=== PATIENT | female | born 1945 | race Caucasian/White ===

== ENCOUNTER → 2021-07-09 06:51 | Outpatient (CLI) | payer MEDICARE, SELFPAY ==
[2021-07-09 08:54] LABS: Add Manual Diff / Slide Review NO; Basophils Absolute Auto 100 /uL (0-100); Basophils Percent Auto 0.9 % (0-2); Eosinophils Absolute Auto 200 /uL (0-450); Eosinophils Percent Auto 3.3 % (2-4); Hematocrit 38.5 % (36-46); Hemoglobin 12.8 g/dL (12.0-16.0); Lymphocytes Absolute Auto 2200 /uL (1100-4500); Lymphocytes Percent Auto 34.6 % (25-40); Mean Corpuscular HGB Conc 33.2 % (30-36); Mean Corpuscular Hemoglobin 30.5 PG (26-34); Mean Corpuscular Volume 92.1 fL (80-100); Monocytes Absolute Auto 700 /uL (0-900); Monocytes Percent Auto 11.2 % (3-14); Neutrophils Absolute Auto 3200 /uL (1500-7000); Platelet Count 175 X10^3/uL (150-400); Red Blood Cell Count 4.18 X10^6/uL (4.0-5.2); Red Cell Distribution Width 12.7 % (11.6-14.8); White Blood Cell Count 6.3 X10^3/uL (4.5-11.0)
[2021-07-09 09:00] LABS: Alanine Aminotransferase 17 IU/L (<35); Albumin 4.2 g/dL (3.5-5.0); Albumin Globulin Ratio 1.8 (1.0-2.8); Alkaline Phosphatase 53 U/L (38-126); Aspartate Aminotransferase 27 IU/L (14-36); BUN Creatinine Ratio 38.2 (6-22); Bilirubin Total 0.4 mg/dL (0.2-1.3); Blood Urea Nitrogen 26 mg/dL (7-17); Carbon Dioxide 34 mmol/L (22-32); Chloride 103 mmol/L (98-107); Cholesterol 192 mg/dL (140-199); Estimated Glomerular Filt Rate > 60 mL/min (>60); Globulin 2.3 g/dL (1.7-4.1); Glucose 91 mg/dL (80-110); HDL Cholesterol 100 mg/dL (40-60); HEMOLYSIS < 15 (0-50); LDL Cholesterol Calculated 78 mg/dL (<100); Potassium 4.8 mmol/L (3.4-5.1); Sodium 139 mmol/L (137-145); Total Protein 6.5 g/dL (6.3-8.2); Triglycerides 68 mg/dL (35-150)
[2021-07-09 09:14] LABS: Vitamin D 25 Hydroxy (D3) 56.7 ng/mL (30.0-100.0)
[2021-07-09 09:20] LABS: Free T4, Direct Thyroxine 1.34 ng/dL (0.78-2.19)
[2021-07-09 09:34] LABS: Thyroid Stimulating Hormone 0.954 uIU/mL (0.47-4.68)
[2021-07-09 09:47] LABS: Vitamin B12 347 pg/mL (239-931)
== END ==
PROVIDERS: PCP Family Medicine; Referring Provider Specialist; Visit Provider Specialist
DX: I10 Essential (primary) hypertension (principal); E89.0 Postprocedural hypothyroidism; M85.80 Other specified disorders of bone density and structure, unspecified site; E55.9 Vitamin D deficiency, unspecified
CPT/HCPCS: 36415; 80053; 80061; 82306; 82607; 84439; 84443; 85025

== ENCOUNTER → 2021-11-15 08:05 | Outpatient (CLI) | payer MEDICARE, SELFPAY ==
--- NOTE | 2021-11-15 | DI.MG.S_ITS ---
BILATERAL DIGITAL SCREENING MAMMOGRAM 3D/2D WITH CAD WITH AUGMENTATION: 11/15/2021 CLINICAL: Routine screening. Comparison is made to exams dated: 07/19/2020 mammogram, 06/30/2018 mammogram, and 06/27/2017 mammogram - out side. Both breasts are heterogeneously dense, which may obscure small masses (category c / 51-75% glandular tissue). Current study was also evaluated with a Computer Aided Detection (CAD) system. Bilateral breast implants are present. No significant masses, calcifications, or other findings are seen in either breast. There has been no significant interval change. IMPRESSION: NEGATIVE There is no mammographic evidence of malignancy. A 1 year screening mammogram is recommended. Based on the Tyrer Cuzick model (a risk assessment model) the patient's lifetime risk is 6.0% and her 10 year risk is 0.0%. According to the ACR, ACS, and NCCN guidelines, an annual breast MRI exam along with mammogram is recommended if the patient's lifetime risk is 20% or greater. This exam was interpreted at Station ID: [id number]. NOTE: For mammograms, a report in lay terms will be sent to the patient. Approximately 15% of breast malignancies will not be visualized mammographically. In the management of a palpable breast mass, a negative mammogram must not discourage biopsy of a clinically suspicious lesion. Electronically Signed By: Soren rizo/danny:11/15/2021 16:40:16 letter sent: Normal Exam ACR BI-RADS Category 1: Negative [id number]
== END ==
PROVIDERS: PCP Family Medicine; Referring Provider Family Medicine; Visit Provider Family Medicine
DX: Z12.31 Encounter for screening mammogram for malignant neoplasm of breast (principal)
CPT/HCPCS: 77063; 77067

== ENCOUNTER → 2021-12-25 06:51 | Outpatient (CLI) | payer MEDICARE, SELFPAY ==
[2021-12-25 07:32] LABS: Appearance Urine UA CLEAR; Bilirubin Urine UA NEGATIVE (NEGATIVE); Color Urine UA YELLOW; Glucose Urine UA NEGATIVE (Negative); Ketones Urine UA NEGATIVE (NEGATIVE); Leukocyte Esterase Urine UA TRACE (NEGATIVE); Nitrite Urine UA NEGATIVE (Negative); Occult Blood Urine UA TRACE-INTACT (Negative); Protein Urine UA NEGATIVE (Negative); Specific Gravity Urine UA 1.015 (1.000-1.035); Urobilinogen Urine UA 0.2 E.U./dL (0.2)
[2021-12-25 07:37] LABS: Add Manual Diff / Slide Review NO; Bacteria Urine None Seen; Basophils Absolute Auto 100 /uL (0-100); Culture Indicated Urine Specimen Cultured; Eosinophils Absolute Auto 200 /uL (0-450); Eosinophils Percent Auto 2.9 % (2-4); Hematocrit 38.6 % (36-46); Lymphocytes Absolute Auto 2500 /uL (1100-4500); Lymphocytes Percent Auto 32.6 % (25-40); Mean Corpuscular HGB Conc 33.8 % (30-36); Mean Corpuscular Hemoglobin 31.5 PG (26-34); Mean Corpuscular Volume 93.4 fL (80-100); Monocytes Absolute Auto 800 /uL (0-900); Neutrophils Absolute Auto 3900 /uL (1500-7000); Neutrophils Percent Auto 52.5 % (50-75); Platelet Count 229 X10^3/uL (150-400); RBC Urine None Seen (0-5/HPF); Red Blood Cell Count 4.13 X10^6/uL (4.0-5.2); Red Cell Distribution Width 12.7 % (11.6-14.8); Squamous Epithelial Cell Urine 0-1 /HPF (0-5/HPF); WBC Urine 0-1/HPF (0-5/HPF); White Blood Cell Count 7.5 X10^3/uL (4.5-11.0)
[2021-12-25 07:52] LABS: Erythrocyte Sedimentation Rate 6 MM/HR (0-20)
[2021-12-25 07:53] LABS: Alanine Aminotransferase 22 IU/L (<35); Albumin 4.2 g/dL (3.5-5.0); Albumin Globulin Ratio 1.5 (1.0-2.8); Alkaline Phosphatase 60 U/L (38-126); Aspartate Aminotransferase 30 IU/L (14-36); BUN Creatinine Ratio 30.6 (6-22); Bilirubin Total 0.5 mg/dL (0.2-1.3); Blood Urea Nitrogen 19 mg/dL (7-17); C-Reactive Protein Quant < 0.5 mg/dL (<1.0); Calcium 8.6 mg/dL (8.4-10.2); Carbon Dioxide 32 mmol/L (22-32); Chloride 102 mmol/L (98-107); Cholesterol 208 mg/dL (140-199); Estimated Glomerular Filt Rate > 60 mL/min (>60); Globulin 2.8 g/dL (1.7-4.1); Glucose 93 mg/dL (80-110); HDL Cholesterol 94 mg/dL (40-60); HEMOLYSIS < 15 (0-50); LDL Cholesterol Calculated 100 mg/dL (<100); Potassium 4.4 mmol/L (3.4-5.1); Sodium 141 mmol/L (137-145); Triglycerides 69 mg/dL (35-150); Uric Acid 4.5 mg/dL (2.5-6.2)
[2021-12-25 08:27] LABS: Free T3, Triiodothyronine Free 3.55 pg/mL (2.77-5.27); Free T4, Direct Thyroxine 1.29 ng/dL (0.78-2.19)
[2021-12-25 08:38] LABS: Vitamin B12 359 pg/mL (239-931)
[2021-12-25 08:41] LABS: TSH w/ Reflex to FT4 2.75 uIU/mL (0.47-4.68)
== END ==
PROVIDERS: PCP Family Medicine; Referring Provider Family Medicine; Visit Provider Family Medicine
DX: E03.9 Hypothyroidism, unspecified (principal); I10 Essential (primary) hypertension; M32.9 Systemic lupus erythematosus, unspecified
CPT/HCPCS: 36415; 80053; 80061; 81001; 82607; 84439; 84443; 84481; 84550; 85025; 85651; 86140; 87086

== ENCOUNTER 2022-01-27 11:43 | Emergency (ER) | payer MEDICARE, SELFPAY ==
[2022-01-27 11:48] VITALS: BP 139/77; PULSE 86; RESP 16; TEMP 37.1; O2SAT 98; BMI 23.6
--- NOTE | 2022-01-27 12:00 | DI.RAD.S_ITS ---
PROCEDURE: XR HIP W PEL IF DONE RT 2V INDICATIONS: fall, pain TECHNIQUE: AP pelvis with lateral view(s) of the right hip(s). COMPARISON: None. FINDINGS: Bones: No acute appearing fractures or dislocations. Pelvic ring appears intact. No suspicious bony lesions. Postoperative change of the left femoral neck is seen, which appears intact. There is a remote left femoral neck fracture. Soft tissues: The visualized bowel gas pattern is normal. No suspicious soft tissue calcifications. IMPRESSION: No acute appearing fracture can be seen. There is a remote left femoral neck fracture, with pinning. If there is point tenderness (or other clinical suspicion for a fracture not seen on these images) then a dedicated CT could be considered for further evaluation, if clinically appropriate. Dictated by: Bernard Ayers M.D. on 01/27/2022 at 11:38 Approved by: Bernard Ayers M.D. on 01/27/2022 at 11:39
[2022-01-27 14:00] VITALS: BP 138/75; PULSE 84; RESP 16; O2SAT 97
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
[2022-01-27] MEDS: KETOROLAC 30 MG/ML VIAL IM (14:39)
[2022-01-27] MEDS: predniSONE 20 MG TABLET PO (14:39)
[2022-01-27] MEDS: HYDROCODONE/ACET 5/325 TABLET 1 TAB PO (14:39)
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
[2022-01-27 15:53] VITALS: BP 142/72; PULSE 86; RESP 16; O2SAT 98
== END 2022-01-27 15:54 | disposition home or self-care (01) ==
PROVIDERS: Emergency Provider Nurse Practitioner Critical Care Medicine; PCP Family Medicine
DX: M25.551 Pain in right hip (principal); M54.16 Radiculopathy, lumbar region; Y04.2XXA Assault by strike against or bumped into by another person, initial encounter
CPT/HCPCS: 72100; 73502; 96372; 99283; 99284; J1885

== ENCOUNTER → 2022-02-02 13:55 | Outpatient (CLI) | payer MEDICARE, SELFPAY ==
--- NOTE | 2022-02-02 13:58 | DI.MRI.S_ITS ---
PROCEDURE: MR LUMBAR SPINE WO CON INDICATIONS: acute on chronic radicular back pain TECHNIQUE: Noncontrast sagittal T1 spin echo and T2 fast echo, sagittal STIR, and T2 fast spin echo through the lumbar spine. In cases with scoliosis, additional coronal T2 fast spin echo may be performed. COMPARISON: [facility], CR, XR LUMBAR SPINE 2-3V, 01/27/2022, 14:33. FINDINGS: Image quality: Excellent. Alignment and Curvature: Mild dextro curvature is centered L2. 5 mm degenerative retrolisthesis of L2 on L3. Bone Marrow: Marrow is of normal overall signal. No acute vertebral body compression fractures. Spinal Cord: Conus medullaris terminates at the T12-L1 level. Visualized cord demonstrates normal signal and size. Paraspinous Soft Tissues: No paravertebral masses. T12-L1: No canal stenosis or foraminal stenosis. L1-L2: Moderate diffuse disc bulge. Mild facet hypertrophy. Vcic-pz-gdzvptqs left foraminal stenosis. L2-L3: Retrolisthesis of L2 on L3. Disc bulge. Facet hypertrophy. No significant canal stenosis. Whnx-ga-zjmztflt right foraminal narrowing. Moderate left foraminal narrowing with flattening deformity on the exiting left L2 nerve root. L3-L4: Disc bulge. Facet hypertrophy. No significant canal stenosis. Hhbe-am-mqwtzhtk bilateral foraminal stenosis. L4-L5: Disc bulge. Facet hypertrophy. No significant canal stenosis. Mild bilateral foraminal stenosis. L5-S1: Disc bulge. Facet hypertrophy. No canal stenosis or significant foraminal stenosis. IMPRESSION: 1. Mild dextrocurvature. 2. Multilevel facet arthropathy. 3. No significant canal stenosis. 4. Multilevel foraminal stenosis as described above. Dictated by: Lei Rosa M.D. on 02/04/2022 at 9:41 Approved by: Lei Rosa M.D. on 02/04/2022 at 9:49
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
== END ==
PROVIDERS: PCP Family Medicine; Referring Provider Family Medicine; Visit Provider Family Medicine
DX: S32.511A Fracture of superior rim of right pubis, initial encounter for closed fracture (principal); S32.10XA Unspecified fracture of sacrum, initial encounter for closed fracture; S76.011A Strain of muscle, fascia and tendon of right hip, initial encounter; S73.101A Unspecified sprain of right hip, initial encounter; S30.1XXA Contusion of abdominal wall, initial encounter; M76.01 Gluteal tendinitis, right hip; M16.11 Unilateral primary osteoarthritis, right hip; Y09 Assault by unspecified means; M54.16 Radiculopathy, lumbar region; M25.551 Pain in right hip
CPT/HCPCS: 72148; 73721

== ENCOUNTER → 2022-02-20 10:27 | Outpatient (CLI) | payer MEDICARE, SELFPAY ==
[2022-02-20 11:42] LABS: COVID19 -Nasal RAPID Negative (Negative)
== END ==
PROVIDERS: PCP Family Medicine; Referring Provider Orthopaedic Surgery; Visit Provider Orthopaedic Surgery
DX: Z20.822 Contact with and (suspected) exposure to COVID-19 (principal)
CPT/HCPCS: 87635; C9803

== ENCOUNTER 2022-02-22 06:30 | Day surgery (SDC) | payer MEDICARE, SELFPAY ==
[2022-02-21 07:36] VITALS: BMI 22.8
[2022-02-22] VITALS (18 sets, daily range): BP systolic 102–166; BP diastolic 54–85; PULSE 82–102; RESP 9–20; TEMP 36.2–36.8; O2SAT 90–100; BMI 22.8
--- NOTE | 2022-02-22 | DI.RAD.S_ITS ---
PROCEDURE: XR SHOULDER RT MIN 2V INDICATIONS: ORIF TECHNIQUE: 3 views of the shoulder were acquired. [facility] 2+ VIEWS RIGHT, 02/05/2022, 14:09. FINDINGS: Intraoperative images were obtained for right proximal humerus fixation hardware placement. IMPRESSION: 3 intraoperative images were obtained for right proximal humerus fixation hardware placement. Please see operative note for full details. Dictated by: Bal Whitney M.D. on 02/22/2022 at 9:25 Approved by: Bal Whitney M.D. on 02/22/2022 at 9:25
[2022-02-22] MEDS: LACTATED RINGERS 1,000 ML 42 ML IV ×2 (07:29→09:03)
--- NOTE | 2022-02-22 07:40 | PM.PREOP ---
Pre-operative Note Interval Note History & Physical reviewed/Exam performed by Physician: Yes Changes to H&P: No
[2022-02-22] MEDS: CEFAZOLIN 2 GM/100 ML PREMIX 100 ML IV (08:15)
[2022-02-22] MEDS: TRANEXAMIC ACID 1,000 MG VIAL 1000 MG INJ (08:20)
--- NOTE | 2022-02-22 08:52 | SUR.OPER ---
Beach chair with Skytron bed shoulder positioner. Lower body on padded OR bed. Head in foam padded head cradle, secured with straps. Non-operative arm secured <90 degrees abduction, padded with gel pad and tucked at side. 2 Pillows under knees. Gel pad under bilateral heels and heels floating. Safety belt at thigh. Cloth tape over blanket over lower legs.
--- NOTE | 2022-02-22 08:53 | SUR.OPER ---
Patients glasses placed in black glass case with patient label and placed into belongings bag in pre-op area.
--- NOTE | 2022-02-22 10:18 | P.OP_ITS ---
Operative Date/Time/Diagnoses Date of procedure: 02/22/22 Time of procedure: 10:18 Pre-op diagnosis: Right proximal humerus greater tuberosity fracture Post-op diagnosis: same Procedure & Clinicians Procedure: ORIF right shoulder greater tuberosity fracture Same procedure as scheduled: Yes Indications: This is a pleasant 77-year-old female who presents today with right proximal humerus greater tuberosity fracture. Preoperatively we discussed that if not treated, the displacement of her greater tuberosity fracture could lead to limitations in abduction and external rotation. In order to reduce the fracture, allow early range of motion and full range of motion we discussed going forward with surgery. Risks were discussed with her including risks of infection, damage to internal structures, bleeding, hardware failure, need for future surgery and anesthesia. No guarantees were made regarding outcomes. She expressed understanding and wished to go forward with surgery. Surgeon: Telly Mirza Web Master: Elise Paige Anesthesia Type: General Operative Notes Findings: Right shoulder greater tuberosity fracture as seen on fluoroscopy and under direct visualization Closure Type: primary Prosthetic devices, grafts, tissues, transplants, or devices: Piña and Nephew greater tuberosity locking plate Estimated Blood Loss (mL): 50 Blood products transfused: none Procedure in detail: Patient was seen in the preoperative holding area. The right upper extremity was examined and marked with my initials. We again went over the risks and benefits of surgery and consent was signed. The patient was brought back to the operating room and placed in a beach chair position. All bony prominences were padded. 2 g of Ancef and 1g of TXA were given. The left upper extremity was prepped and draped in the standard sterile fashion. A time-out was then performed in my initials were again confirmed on the right upper extremity. A standard deltopectoral approach was performed. The cephalic vein was encountered and moved lateral and protected throughout the remainder of the case. The clavipectoral fascia was incised and the conjoined tendon was retracted medially. The biceps tendon was [intact and within the bicipital groove] was preserved through the remainder of the case. The subacromial space and deltoid were freed of all adhesions. The axillary nerve was identified and protected through the entirety of the procedure. The fracture site was debrided. Two separate 2. Ethibond sutures were placed through the supraspinatus and infraspinatus and used to pull the greater tuberosity distal. This allowed the plate to be fashioned and placed. A bicortical nonlocking screw was placed in the oblong hole followed by a cancellous nonlocking screw placed in the most proximal hole. This sucked the p late down and the remainder of the holes were filled. The rotator cuff was then tied into the plate using the Ethibond sutures. Shoulder was then taken through range of motion under multiple fluoroscopic views to confirm adequate hardware placement and fracture reduction. Wounds were thoroughly irrigated. They were then closed with 2-0 PDS and wanda. Sterile dressings were placed the patient was then brought to the postanesthesia care unit. Assisting participation: This operation could not have been safely performed (without compromising the technical results or length of the procedure) without the assistance of a skilled surgical instrument repair specialist. The surgical instrument repair specialist was medically necessary for proper positioning, retraction and manipulation of instruments, proper exposure, graft prep, and manipulation of tissue. Complications: none Post-operative Condition: stable Disposition: PACU Plan for aftercare: Sling for 2 weeks for comfort, she may come out of the sling for range of motion, gentle with passive. We will start physical therapy within the next 2 weeks. Okay to discontinue the sling after 2-4 weeks if comfortable. Aquacel dressing in place, remove in clinic. Okay to shower over the dressing. Please note take the dressing off if water gets underneath the dressing.
--- NOTE | 2022-02-22 13:33 | SUR.PHASEII ---
Patient able to maintain oxygen saturation 93 to 94% after using Incentive spirometer and practicing deep breathing. Patient denies any SOB; strong cough noted. Instructed patient to use her Incentive spirometer every hour while awake. Advised patient and family that precriptions were at [facility]. Instructed to call Dr Mirza's office for follow-up appointment. V/U. Home in stable condition with family.
== END 2022-02-22 13:38 | disposition home or self-care (01) ==
PROVIDERS: PCP Family Medicine; Referring Provider Orthopaedic Surgery; Visit Provider Orthopaedic Surgery
PROC: (CPT 23615; principal; 2022-02-22 07:45)
DX: S42.251A Displaced fracture of greater tuberosity of right humerus, initial encounter for closed fracture (principal); G89.18 Other acute postprocedural pain; Y04.0XXA Assault by unarmed brawl or fight, initial encounter; Y92.481 Parking lot as the place of occurrence of the external cause
CPT/HCPCS: 23615; 64415; 73030; 76000; J0690; J1100; J1170; J2405; J2704; J3010

== ENCOUNTER → 2022-11-20 08:08 | Outpatient (CLI) | payer MEDICARE, SELFPAY ==
--- NOTE | 2022-11-20 | DI.MG.S_ITS ---
BILATERAL DIGITAL SCREENING MAMMOGRAM 3D/2D WITH CAD WITH AUGMENTATION: 11/20/2022 CLINICAL: Routine screening. Family history of breast cancer. Comparison is made to exams dated: 11/15/2021 mammogram - [facility], 07/19/2020 mammogram, 07/19/2020 mammogram, 06/30/2018 mammogram, and 06/27/2017 mammogram - out side. Both breasts are heterogeneously dense, which may obscure small masses (category c / 51-75% glandular tissue). Current study was also evaluated with a Computer Aided Detection (CAD) system. Bilateral breast implants are present. No significant masses, calcifications, or other findings are seen in either breast. There has been no significant interval change. IMPRESSION: BENIGN There is no mammographic evidence of malignancy. A 1 year screening mammogram is recommended. Based on the Tyrer Cuzick model (a risk assessment model) the patient's lifetime risk is 5.4% and her 10 year risk is 0.0%. According to the ACR, ACS, and NCCN guidelines, an annual breast MRI exam along with mammogram is recommended if the patient's lifetime risk is 20% or greater. This exam was interpreted at Station ID: [id number]. NOTE: For mammograms, a report in lay terms will be sent to the patient. Approximately 15% of breast malignancies will not be visualized mammographically. In the management of a palpable breast mass, a negative mammogram must not discourage biopsy of a clinically suspicious lesion. Electronically Signed By: Bal gonsalves/danny:11/20/2022 09:34:36 letter sent: Normal Exam ACR BI-RADS Category 2: Benign Finding(s) 3342F
== END ==
PROVIDERS: PCP Family Medicine; Referring Provider Family Medicine; Visit Provider Family Medicine
DX: Z12.31 Encounter for screening mammogram for malignant neoplasm of breast (principal); Z80.3 Family history of malignant neoplasm of breast
CPT/HCPCS: 77063; 77067

== ENCOUNTER → 2022-12-12 07:07 | Outpatient (CLI) | payer MEDICARE, SELFPAY ==
[2022-12-12 08:41] LABS: Appearance Urine UA CLEAR; Bilirubin Urine UA NEGATIVE (NEGATIVE); Color Urine UA YELLOW; Glucose Urine UA NEGATIVE (Negative); Ketones Urine UA NEGATIVE (NEGATIVE); Leukocyte Esterase Urine UA TRACE (NEGATIVE); Nitrite Urine UA POSITIVE (Negative); Occult Blood Urine UA NEGATIVE (Negative); Protein Urine UA TRACE (Negative); Specific Gravity Urine UA >=1.030 (1.000-1.035); Urobilinogen Urine UA 0.2 E.U./dL (0.2)
[2022-12-12 08:43] LABS: Amorphous Sediment Urine 1+; Bacteria Urine Moderate (10-30); RBC Urine None Seen (0-5/HPF); Renal Epithelial Cells Urine 1-5/HPF (0-1/HPF); Squamous Epithelial Cell Urine 5-10 /HPF (0-5/HPF); WBC Urine 5-10/HPF (0-5/HPF); pH Urine UA 5.5 (4.5-8.0)
[2022-12-12 08:44] LABS: Culture Indicated Urine Specimen Cultured
[2022-12-12 08:57] LABS: Add Manual Diff / Slide Review NO; Basophils Absolute Auto 100 /uL (0-100); Basophils Percent Auto 0.9 % (0-2); Eosinophils Absolute Auto 200 /uL (0-450); Eosinophils Percent Auto 2.3 % (2-4); Hematocrit 40.1 % (36-46); Hemoglobin 13.7 g/dL (12.0-16.0); Lymphocytes Absolute Auto 2600 /uL (1100-4500); Lymphocytes Percent Auto 33.8 % (25-40); Mean Corpuscular HGB Conc 34.2 % (30-36); Mean Corpuscular Hemoglobin 31.7 PG (26-34); Mean Corpuscular Volume 92.7 fL (80-100); Monocytes Absolute Auto 800 /uL (0-900); Monocytes Percent Auto 10.1 % (3-14); Neutrophils Absolute Auto 4000 /uL (1500-7000); Neutrophils Percent Auto 52.9 % (50-75); Platelet Count 220 X10^3/uL (150-400); Red Blood Cell Count 4.33 X10^6/uL (4.0-5.2); Red Cell Distribution Width 13.1 % (11.6-14.8); White Blood Cell Count 7.6 X10^3/uL (4.5-11.0)
[2022-12-12 09:12] LABS: BUN Creatinine Ratio 35.8 (6-22); Blood Urea Nitrogen 24 mg/dL (7-17); Calcium 9.5 mg/dL (8.4-10.2); Carbon Dioxide 29 mmol/L (22-32); Chloride 101 mmol/L (98-107); Estimated Glomerular Filt Rate > 60 mL/min (>60); Glucose 91 mg/dL (80-110); HEMOLYSIS < 15 (0-50); Potassium 3.8 mmol/L (3.4-5.1); Sodium 139 mmol/L (137-145)
== END ==
PROVIDERS: PCP Family Medicine; Referring Provider Orthopaedic Surgery; Visit Provider Orthopaedic Surgery
DX: Z01.818 Encounter for other preprocedural examination (principal); Z01.812 Encounter for preprocedural laboratory examination; N39.0 Urinary tract infection, site not specified
CPT/HCPCS: 36415; 80048; 81001; 85025; 87086; 93005

== ENCOUNTER → 2022-12-13 06:54 | Outpatient (CLI) | payer MEDICARE, SELFPAY ==
--- NOTE | 2022-12-13 | DI.CT.S_ITS ---
PROCEDURE: CT SHOULDER RIGHT WITHOUT CON INDICATIONS: ROTATOR CUFF ARTHROPATHY OF RIGHT SHOULDER TECHNIQUE: Noncontrast 1-1.5 mm thick sections acquired from the acromioclavicular joint to the inferior scapula, with coronal and sagittal reformatting. COMPARISON: [facility], CR, XR SHOULDER 2+ VIEWS RIGHT, 12/05/2022, 9:34. FINDINGS: Image quality: Excellent. Bones: Postsurgical changes are seen from proximal humeral fracture fixation with a lateral plate and screw construct. The metal hardware appears to be intact. No acute osseous fracture is seen. There is residual osseous deformity at the posterior greater tuberosity. A displaced ossification is seen posterior to the glenohumeral joint measuring 2.0 x 2.2 x 0.4 cm. The [id number] degenerative changes are seen at the acromioclavicular joint. There is mild degenerative spurring in the glenoid rim. The humeral head is mildly high riding with narrowing of the acromiohumeral interval to 0.5 cm. Old healed right-sided rib fractures are seen without a definite acute displaced rib fracture identified. Soft tissues: Small glenohumeral effusion. There is mild atrophy and fatty infiltration of the supraspinatus muscle that is suspicious for chronic tendon tearing. There is also fatty infiltration of the supraspinatus muscle. The ossification posterior to the humeral head appears to be located along the course of the infraspinatus tendon may represent a displaced avulsion fragment. The teres minor and subscapularis muscles are normal in bulk. However, the tendons, ligaments, articular cartilages, and labrum are not well evaluated with standard CT. There is mild scarring or atelectasis in the medial right middle lobe. Pleural-parenchymal scarring is seen at the right lung apex. A right breast implant is partially imaged. IMPRESSION: 1. Postsurgical changes from right proximal humeral fixation with intact hardware. Fracture appears healed. No acute osseous abnormality. 2. Findings suspicious for chronic rotator cuff tendon tearing are seen including atrophy and fatty infiltration of the supraspinatus and infraspinatus muscles and a high-riding humeral head. Displaced ossification posterior to the glenohumeral joint is located along the course of the infraspinatus tendon and is suspicious for a chronic displaced greater tuberosity avulsion fragment. 3. 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 4. Small glenohumeral effusion. Approved by: Medardo Dixon M.D. on 12/13/2022 at 15:59
== END ==
PROVIDERS: PCP Family Medicine; Referring Provider Orthopaedic Surgery; Visit Provider Orthopaedic Surgery
DX: Z98.890 Other specified postprocedural states (principal); M62.511 Muscle wasting and atrophy, not elsewhere classified, right shoulder; M19.011 Primary osteoarthritis, right shoulder; M25.411 Effusion, right shoulder
CPT/HCPCS: 73200

== ENCOUNTER 2022-12-25 06:30 | Inpatient (IN) | payer MEDICARE, SELFPAY ==
[2022-12-20 10:44] VITALS: BMI 22.7
[2022-12-25] VITALS (9 sets, daily range): BP systolic 121–171; BP diastolic 67–96; PULSE 81–90; RESP 13–23; TEMP 36–36.6; O2SAT 94–98; BMI 22.8
--- NOTE | 2022-12-25 06:00 | DI.RAD.S_ITS ---
PROCEDURE: XR SHOULDER RT MIN 2V INDICATIONS: RTSA TECHNIQUE: 2 views of the shoulder were acquired. COMPARISON: [facility], , XR SHOULDER RT MIN 2V, 02/22/2022, 10:37. FINDINGS: Right shoulder arthroplasty changes. Soft tissue post surgical change is present. IMPRESSION: Post operative changes as above. Dictated by: Samantha Mccullough M.D. on 12/25/2022 at 11:11 Approved by: Samantha Mccullough M.D. on 12/25/2022 at 11:11
[2022-12-25] MEDS: LACTATED RINGERS 1,000 ML 42 ML IV ×2 (07:00→10:05)
--- NOTE | 2022-12-25 07:35 | SUR.PREOP ---
Block start time [0740] Time out at 0735. Monitoring initiated and maintained throughout procedure. Oxygen and medications given per anesthesiologist instructions. Patient remained stable throughout procedure, no adverse reactions noted, VSS stable post and patient tolerated procedure. Block end time [0746].
--- NOTE | 2022-12-25 07:37 | PM.PREOP ---
Pre-operative Note Interval Note History & Physical reviewed/Exam performed by Physician: Yes Changes to H&P: No
[2022-12-25] MEDS: CEFAZOLIN 2 GM/100 ML PREMIX 100 ML IV (07:55)
[2022-12-25] MEDS: TRANEXAMIC ACID 1,000 MG VIAL 1000 MG INJ (08:18)
--- NOTE | 2022-12-25 08:33 | SUR.OPER ---
Beach chair with Skytron shoulder positioner. Lower body on padded OR bed. Head in foam padded head cradle, secured with straps. Non-operative arm secured <90 degrees abduction. Pillow under knees. Safety belt at thigh. Cloth tape over blanket over lower legs.
[2022-12-25] MEDS: BUPIVACAINE 0.25% (PF) 30 ML, EPINEPHrine 0.15 MG INJ (08:57)
--- NOTE | 2022-12-25 10:17 | P.OP_ITS ---
Operative Date/Time/Diagnoses Date of procedure: 12/25/22 Time of procedure: 10:17 Pre-op diagnosis: Right shoulder rotator cuff insufficiency Post-op diagnosis: same Procedure & Clinicians Procedure: Right shoulder removal of hardware Right shoulder reverse total shoulder arthroplasty Same procedure as scheduled: Yes Indications: Indications: This is a 77-year-old female status post greater tuberosity fracture and ORIF who never really regained function past 90? forward elevation. She also has pain. We discussed that for pain control reverse total shoulder arthroplasty he is a good option and due to her rotator cuff insufficiency. We would also perform a removal of hardware. Risks and benefits were described including the risk of infection, bleeding, damage to internal structures including nerves. We also discussed the risk of failure of surgery and the need for revision surgery as well as the risk of anesthesia. The patient expressed understanding with these risks and wished to go forward with surgery. Operative Notes Findings: Findings: Deficient rotator cuff and essentially non-existent greater tuberosity as noted on preoperative imaging and under direct visualization Prosthetic devices, grafts, tissues, transplants, or devices: Tornier implants Base plate: standard 25 mm Glenosphere: 33 (built-in +3) Stem: Perform 1 Poly: +0, 10 degree Estimated Blood Loss (mL): 50 Blood products transfused: none Procedure in detail: Patient was seen in the preoperative holding unit. The correct right shoulder was identified and marked with my initials. Again we discussed the risks and benefits of surgery and they wished to go forward with surgery. The patient was brought back to the operating room and placed supine on the operating table. Smooth endotracheal intubation was performed by anesthesia. All prominences were padded and they were placed into the beach chair position. Intravenous antibiotics were given. The right shoulder was then prepped with the standard sterile preparation and draping. A time-out was then performed in my initials were again identified on the correct shoulder. 1 g of IV tranexamic acid was given. A standard deltopectoral incision was made. Skin flaps were made. The cephalic vein was identified and retracted laterally. This was protected throughout the remainder of the case. Sharp dissection was made along the deltoid, subacromial and subcoracoid space to release adhesions. The conjoined tendon was identified and the axillary nerve was palpated and continuous using the tug test. It was protected throughout the remainder of the case. A brown retractor was placed underneath the deltoid muscle and a darach retractor underneath the conjoint tendon. The anterior circumflex artery and associated veins on the lower border of the subscapularis were identified and tied off using 0-Vicryl. The biceps tendon was identified in the bicipital groove. This was released from its sheath, and taken from its origin on the glenoid and tied into the pectoralis tendon for a solid tenodesis. We then began a subscapularis peel. The subsc apularis was tagged with an Ethibond suture. A 360 degree circumferential release of the subscapularis was performed with protection of the axillary nerve. The coracohumeral ligament was released at the base of the coracoid. The coracoacromial ligament was left intact. The shoulder was then dislocated. At this point the plate was visible laterally. Scar tissue was removed and the plate was removed with all of its screws. The rotator cuff was noted to be insufficient. An intramedullary guide was used set at version of 30?. Using an oscillating saw a conservative humeral head cut was made. Impaction reamers were reamed up to a size 1 stem with a built-in angle 135?. A neck protector was placed. Attention was then turned to the glenoid. After retracting the humeral head posteriorly a circumferential release was performed of the capsule with protection of the axillary nerve. The labrum was then released starting at the biceps anchor and going around the rim a small amount of triceps was released from the inferior glenoid. A center guide pin was then placed using the guide, followed by Reamer. After adequate cartilage was removed the center drill hole was drilled and measured. The base plate was then implanted and screwed into place. The superior drill hole was drilled and filled in a nonlocking fashion, followed by the inferior and anterior holes in locking fashion, the posterior hole was also filled. A 33 (+3) glenosphere was then selected and screwed into place onto the base plate. Turning back to the humerus, the humeral head was delivered and trialed with a 0, 10 degree wedge. The arm was taken through range of motion and this was felt to be stable. The trial was then removed and a dilute Betadine wash was then performed with 1 L of sterile saline. Before placing the final implant, drill holes were made in the bicipital groove for the subscapularis repair, and sutures were passed through the drill holes. The final stem was then impacted into the humerus. The shoulder was then reduced and again brought through range of motion and was felt to be stable. The interval was then closed using #2 Ethibond. The subscapularis was then repaired using a modified racking hitch with nice loupes. The deltopectoral interval was then closed with #2 Ethibond. The skin was closed with 2-0 Vicryl and Monocryl followed by Aquacel dressing. Patient was awoken from anesthesia and brought back to the postoperative recovery unit without issue. They were placed into a sling. Assisting participation: This operation could not have been safely performed (without compromising the technical results or length of the procedure) without the assistance of a skilled surgical technician. The surgical technician was medically necessary for proper positioning, retraction and manipulation of instruments, proper exposure, graft prep, and manipulation of tissue. Complications: none Post-operative Condition: stable Disposition: PACU Plan for aftercare: Postoperative instructions: Sling to remain on for 6 weeks. No external rotation past neutral for 6 weeks. Okay for sling to come off for shower. Okay to shower over the Aquacel dressing. If any water gets underneath the dressing, remove the dressing. First postoperative visit in 2 weeks.
[2022-12-25] MEDS: OXYCODONE IR 5 MG TABLET PO (11:05)
[2022-12-25] MEDS: ONDANSETRON 4 MG/2 ML INJ IV (11:05)
== END 2022-12-25 13:00 | disposition home or self-care (01) | DRG 483 ==
PROVIDERS: Admitting Provider Orthopaedic Surgery; PCP Family Medicine; Referring Provider Orthopaedic Surgery; Visit Provider Orthopaedic Surgery
PROC: 0RRJ00Z Replacement of Right Shoulder Joint with Reverse Ball and Socket Synthetic Substitute, Open Approach (ICD-10-PCS; CPT 23472; principal; 2022-12-25 07:45)
DX: M12.811 Other specific arthropathies, not elsewhere classified, right shoulder (principal); M75.102 Unspecified rotator cuff tear or rupture of left shoulder, not specified as traumatic
CPT/HCPCS: 64415; 73030; C1776; J0171; J0690; J1100; J2405; J2704; J3010

== ENCOUNTER → 2023-01-02 10:20 | Outpatient (CLI) | payer MEDICARE, SELFPAY ==
[2023-01-02 11:02] LABS: Add Manual Diff / Slide Review NO; Basophils Absolute Auto 100 /uL (0-100); Eosinophils Absolute Auto 300 /uL (0-450); Eosinophils Percent Auto 3.4 % (2-4); Hematocrit 34.1 % (36-46); Hemoglobin 11.5 g/dL (12.0-16.0); Lymphocytes Absolute Auto 2000 /uL (1100-4500); Lymphocytes Percent Auto 21.8 % (25-40); Mean Corpuscular HGB Conc 33.7 % (30-36); Mean Corpuscular Hemoglobin 31.8 PG (26-34); Mean Corpuscular Volume 94.5 fL (80-100); Monocytes Absolute Auto 1100 /uL (0-900); Neutrophils Absolute Auto 5700 /uL (1500-7000); Neutrophils Percent Auto 61.8 % (50-75); Platelet Count 255 X10^3/uL (150-400); Red Blood Cell Count 3.61 X10^6/uL (4.0-5.2); Red Cell Distribution Width 12.9 % (11.6-14.8); White Blood Cell Count 9.3 X10^3/uL (4.5-11.0)
[2023-01-02 11:23] LABS: Alanine Aminotransferase 21 IU/L (<35); Albumin 3.9 g/dL (3.5-5.0); Albumin Globulin Ratio 1.3 (1.0-2.8); Alkaline Phosphatase 64 U/L (38-126); Aspartate Aminotransferase 32 IU/L (14-36); BUN Creatinine Ratio 42.9 (6-22); Bilirubin Total 0.6 mg/dL (0.2-1.3); Blood Urea Nitrogen 24 mg/dL (7-17); Calcium 9.3 mg/dL (8.4-10.2); Carbon Dioxide 32 mmol/L (22-32); Chloride 100 mmol/L (98-107); Cholesterol 190 mg/dL (140-199); Estimated Glomerular Filt Rate > 60 mL/min (>60); Globulin 2.9 g/dL (1.7-4.1); Glucose 102 mg/dL (80-110); HDL Cholesterol 79 mg/dL (40-60); HEMOLYSIS < 15 (0-50); LDL Cholesterol Calculated 94 mg/dL (<100); Potassium 4.1 mmol/L (3.4-5.1); Sodium 136 mmol/L (137-145); Total Protein 6.8 g/dL (6.3-8.2); Triglycerides 85 mg/dL (35-150)
[2023-01-02 11:46] LABS: Free T3, Triiodothyronine Free 3.98 pg/mL (2.77-5.27); Free T4, Direct Thyroxine 1.73 ng/dL (0.78-2.19)
[2023-01-02 12:00] LABS: TSH w/ Reflex to FT4 1.03 uIU/mL (0.47-4.68)
== END ==
PROVIDERS: PCP Family Medicine; Referring Provider Family Medicine; Visit Provider Family Medicine
DX: E03.9 Hypothyroidism, unspecified (principal); I10 Essential (primary) hypertension; M32.9 Systemic lupus erythematosus, unspecified
CPT/HCPCS: 36415; 80053; 80061; 84439; 84443; 84481; 85025

== ENCOUNTER → 2023-07-09 09:39 | Outpatient (CLI) | payer MEDICARE, SELFPAY ==
[2023-07-09 10:08] LABS: Add Manual Diff / Slide Review NO; Basophils Absolute Auto 100 /uL (0-100); Eosinophils Absolute Auto 200 /uL (0-450); Eosinophils Percent Auto 2.4 % (2-4); Hematocrit 40.3 % (36-46); Hemoglobin 13.3 g/dL (12.0-16.0); Lymphocytes Absolute Auto 2100 /uL (1100-4500); Mean Corpuscular HGB Conc 32.9 % (30-36); Mean Corpuscular Hemoglobin 30.5 PG (26-34); Mean Corpuscular Volume 92.5 fL (80-100); Monocytes Absolute Auto 1000 /uL (0-900); Monocytes Percent Auto 12.8 % (3-14); Neutrophils Absolute Auto 4500 /uL (1500-7000); Neutrophils Percent Auto 56.8 % (50-75); Platelet Count 221 X10^3/uL (150-400); Red Blood Cell Count 4.35 X10^6/uL (4.0-5.2); Red Cell Distribution Width 13.6 % (11.6-14.8); White Blood Cell Count 7.9 X10^3/uL (4.5-11.0)
[2023-07-09 10:19] LABS: HEMOLYSIS < 15 (0-50); Iron 127 ug/dL (37-170)
[2023-07-09 10:30] LABS: Percent Iron Saturation 35 % (15-50); Total Iron Binding Capacity 358 ug/dL (265-497); Transferrin 298 mg/dL (206-381)
[2023-07-09 11:00] LABS: Ferritin 15 ng/mL (11-264)
== END ==
LOC: LAB 09:40
PROVIDERS: PCP Family Medicine; Referring Provider Family Medicine; Visit Provider Family Medicine
DX: D64.9 Anemia, unspecified (principal); M32.9 Systemic lupus erythematosus, unspecified; E03.9 Hypothyroidism, unspecified; I10 Essential (primary) hypertension
CPT/HCPCS: 36415; 82728; 83540; 83550; 85025

== ENCOUNTER 2023-10-29 08:51 | Emergency (ER) | payer MEDICARE, SELFPAY ==
[2023-10-29 08:59] VITALS: BP 224/109; PULSE 92; RESP 14; O2SAT 97
[2023-10-29 09:00] VITALS: PULSE 88; O2SAT 97
[2023-10-29 09:01] VITALS: BP 209/105; PULSE 82; O2SAT 98
[2023-10-29 09:05] VITALS: BP 209/105; PULSE 102; RESP 13; TEMP 36.6; O2SAT 96; BMI 24.0
--- NOTE | 2023-10-29 09:07 | ED_ITS ---
HPI - General Adult General Chief complaint: Skin/Abscess/Foreign Body Stated complaint: l side abd pain t-2wks Time Seen by Provider: 10/29/23 08:57 History of Present Illness HPI narrative: 78-year-old woman with a history of lupus, leg cramps, hypothyroidism multiple episodes of zoster in various areas of her body comes in on week 2 of approximately T10 left-sided zoster that actually appears to be healing nicely complaining of stabbing searing 10/10 pain in the area. Despite having zoster multiple times before, she was not aware that her early use of antivirals could be helpful and is under the impression that she can not take them due to her lupus. She has 10 tablets of hydrocodone left at home after a surgery took 1 yesterday and found it helpful needed a what another 1 last night again, it was helpful. Comes in today wondering what to do next. No fevers, cough, chills. She is having bowel movements. Related Data Home Medications Medication Instructions Recorded Confirmed niacinamide 500 mg tablet 500 mg PO BID Hx basal cell CA 12/17/22 07/15/23 Previous Rx's Medication Instructions Recorded calcium carbonate 600 mg-vitamin 1 tab PO BID #90 tabs 10/08/21 D3 10 mcg (400 unit) chewable tablet (Calcium 600 with Vitamin D3) lidocaine 5 % topical patch 1 patch topical DAILY #30 ea 03/07/22 (Lidoderm) ibuprofen 600 mg tablet 600 mg PO Q6H PRN pain #60 tabs 12/25/22 gabapentin 100 mg capsule See Rx Instructions .Route 01/14/23 .COMPLEX #180 caps hydroxychloroquine 200 mg tablet 200 mg PO DAILY #90 tabs 01/14/23 levothyroxine 125 mcg capsule 125 mcg PO DAILY #90 caps 01/14/23 losartan 50 mg tablet 50 mg PO DAILY #90 tabs 01/14/23 meloxicam 7.5 mg tablet 7.5 mg PO BID #180 tabs 01/14/23 Disabled Parking Permit #1 ea 05/22/23 hydrocodone 5 mg-acetaminophen 325 1 tab PO Q6-8H PRN pain #14 tabs 10/29/23 mg tablet Allergies Allergy/AdvReac Type Severity Reaction Status Date / Time ketamine AdvReac Severe Hallucinati Verified 10/29/23 09:17 ng Review of Systems Review of Systems Narrative: Pertinent positive and negative findings as per HPI Patient History Medical History History of Mohs micrographic surgery for skin cancer (2011) BCC (basal cell carcinoma) Anesthesia complication Chronic right shoulder pain Astigmatism Far-sighted Hearing loss Eczema (~1999) Acne (~1959) Osteoarthritis (~1989) Systemic lupus (~1989) Sleep apnea Shingles Degenerative disc disease Osteopenia Lumbar disc disease (~2015) Hip fracture, left (~1987) Chronic back pain Measles (~1962) Chicken pox (~1949) Cataracts, bilateral (~2017) Painful menstrual periods Heavy menstrual period (~1957) Abnormal Pap smear of cervix (~1985) Hemorrhoid Thyroid nodule (~2007) Hypothyroidism Hypertension (~2016) Skin cancer (~1999) Surgical History Hx of tonsillectomy (1949) Hx of arthroscopy of right knee (2016) History of bilateral breast implants History of surgery (1989) History of surgery (1987) History of open reduction and internal fixation (ORIF) procedure (02/22/22) S/P total abdominal hysterectomy and bilateral salpingo-oophorectomy (~1985) History of total thyroidectomy (~2009) Social History household members: none Smoking Status: Never smoker alcohol intake: current Smoking Status: Never smoker alcohol intake frequency: holidays/special occasions only Substance Use Type: does not use Exam Initial Vital Signs Initial Vital Signs: General: Alert appropriate in no acute distress Respiratory: Able to speak in full sentences, no obvious respiratory distress Skin: Healing zoster rash left side T10 distribution. Some crusting but even that is beginning to heal. No secondary infection Neurologic: Grossly intact no obvious asymmetries or abnormalities Psych: appropriate insight and affect, cooperative Medical Decision Making [facility] Narrative Medical decision making narrative: 78-year-old woman with a history of lupus, hypothyroidism presents with left- sided abdominal pain from her zoster. Approximately 2 weeks into the course with the rash actually healing nicely with no signs of secondary infection. She is having severe neuropathic pain. She is already on gabapentin 200 mg at night. She has hydrocodone at home and states that it was helpful. She avoids nonsteroidals but is on meloxicam 7.5 mg b.i.d.. We discussed using hydrocodone for the pain control, importance of avoiding constipation with the use of narcotics, increasing her gabapentin to an additional 100 mg in the morning to her usual 200 mg at night to help neuropathic pain. There was no indication for additional blood work, imaging or hospitalization today She will follow up with her primary care physician Discharge Plan Departure Patient Disposition: Home Clinical Impression: Herpes zoster Qualifiers: Herpes zoster complications: without complications Qualified Code(s): B02.9 - Zoster without complications Instructions: DI for Shingles Activity Restrictions/Additional Instructions: Thank you for coming today, I am sorry that you are suffering so much with this herpetic pain The shingles outbreak itself is healing nicely and as expected. There was no sign of secondary infection that would require antibiotics At this the only option is treating the nerve pain, you can increase your gabapentin 200 mg capsule in the morning and 2 capsules at bedtime which are actually the formalin instructions on the bottle. You can use 1 hydrocodone up to every 6 hours for severe pain. It is okay to mix this with Tylenol, please recognize that there is the equivalent of 1 Tylenol in every hydrocodone tablet The a prescription for hydrocodone has been electronically transmitted to [facility] in [place] Unfortunately, shingles causes nerve pain and nerve pain is very difficult to treat and horrible to experience. Please make sure that you are using a stool softener. Severe pain as well as narcotics will cause significant constipation If you find that you are getting worse or develop any new symptoms, please feel free to return to the emergency department for further evaluation. Prescriptions: New hydrocodone-acetaminophen 5-325 mg tablet 1 tab PO Q6-8H PRN (Reason: pain) Qty: 14 0RF No Action lidocaine [Lidoderm] 5 % adhesive patch,medicated 1 patch topical DAILY Qty: 30 3RF Rx Instructions: leave on most painful area for up to 12 hrs (DME) Disabled Parking Permit See Rx Instructions .ROUTE .MEDSUPPLY Qty: 1 0RF Rx Instructions: I find this patient to be medically disabled and qualified for Disabled Parking as indicated and signed on the accompanying Disabled Parking Application for Individuals. hydroxychloroquine 200 mg tablet 200 mg PO DAILY Qty: 90 3RF gabapentin 100 mg capsule See Rx Instructions .ROUTE .COMPLEX Qty: 180 3RF Dose Instruction: TAKE 1 CAPSULE BY MOUTH AT BEDTIME NEEDED FOR NEUROPATHY Patient Comments: Pt states she has been taking 300mg at bedtime Rx Instructions: TAKE 2 CAPSULE BY MOUTH AT BEDTIME NEEDED FOR NEUROPATHY levothyroxine 125 mcg capsule 125 mcg PO DAILY Qty: 90 3RF meloxicam 7.5 mg tablet 7.5 mg PO BID Qty: 180 3RF losartan 50 mg tablet 50 mg PO DAILY Qty: 90 3RF niacinamide 500 mg tablet 500 mg PO BID Calcium 600 with Vitamin D3 600 mg-10 mcg (400 unit) tablet,chewable 1 tab PO BID Qty: 90 3RF ibuprofen 600 mg tablet 600 mg PO Q6H PRN (Reason: pain) Qty: 60 0RF Referrals: Slade Thomas MD [Primary Care Provider] - Stand Alone Forms: Patient Portal/API
[2023-10-29 09:27] VITALS: BP 186/87; PULSE 69; RESP 14; O2SAT 97
== END 2023-10-29 09:29 | disposition home or self-care (01) ==
PROVIDERS: Emergency Provider Emergency Medicine; PCP Family Medicine
DX: B02.9 Zoster without complications (principal)
CPT/HCPCS: 99281

== ENCOUNTER → 2023-11-26 07:47 | Outpatient (CLI) | payer MEDICARE, SELFPAY ==
--- NOTE | 2023-11-26 07:48 | DI.MG.S_ITS ---
BILATERAL DIGITAL SCREENING MAMMOGRAM 3D/2D WITH CAD WITH AUGMENTATION: 11/26/2023 CLINICAL: Routine screening. Family history of breast cancer. Comparison is made to exams dated: 11/20/2022 mammogram, 11/15/2021 mammogram - [facility], 07/19/2020 mammogram, and 06/27/2017 mammogram - out side. The breasts are heterogeneously dense, which may obscure small masses (category c / 51-75% glandular tissue). Current study was also evaluated with a Computer Aided Detection (CAD) system. Bilateral breast implants are stable. No significant masses, calcifications, or other findings are seen in either breast. There has been no significant interval change. IMPRESSION: NEGATIVE There is no mammographic evidence of malignancy. A 1 year screening mammogram is recommended. Based on the Tyrer Cuzick model (a risk assessment model) the patient's lifetime risk is 4.8% and her 10 year risk is 0.0%. According to the ACR, ACS, and NCCN guidelines, an annual breast MRI exam along with mammogram is recommended if the patient's lifetime risk is 20% or greater. This exam was interpreted at Station ID: [id number]. NOTE: For mammograms, a report in lay terms will be sent to the patient. Approximately 15% of breast malignancies will not be visualized mammographically. In the management of a palpable breast mass, a negative mammogram must not discourage biopsy of a clinically suspicious lesion. Electronically Signed By: Guerrero salvador/danny:11/26/2023 12:23:03 letter sent: Normal Exam ACR BI-RADS Category 1: Negative
== END ==
PROVIDERS: PCP Family Medicine; Referring Provider Family Medicine; Visit Provider Family Medicine
DX: Z12.31 Encounter for screening mammogram for malignant neoplasm of breast (principal); Z80.3 Family history of malignant neoplasm of breast; R92.333 Mammographic heterogeneous density, bilateral breasts
CPT/HCPCS: 77063; 77067

== ENCOUNTER → 2023-12-31 07:36 | Outpatient (CLI) | payer MEDICARE, SELFPAY ==
[2023-12-31 08:54] LABS: Creatinine Urine Random 65.42 mg/dL
[2023-12-31 08:59] LABS: Microalbumin Urine Random 0.8 mg/dL (0-1.6)
[2023-12-31 09:08] LABS: Add Manual Diff / Slide Review NO; Basophils Absolute Auto 100 /uL (0-100); Basophils Percent Auto 0.8 % (0-2); Eosinophils Absolute Auto 200 /uL (0-450); Eosinophils Percent Auto 2.4 % (2-4); Hematocrit 40.3 % (36-46); Hemoglobin 13.5 g/dL (12.0-16.0); Lymphocytes Absolute Auto 2300 /uL (1100-4500); Lymphocytes Percent Auto 30.3 % (25-40); Mean Corpuscular HGB Conc 33.4 % (30-36); Mean Corpuscular Hemoglobin 31.3 PG (26-34); Mean Corpuscular Volume 93.6 fL (80-100); Monocytes Absolute Auto 800 /uL (0-900); Neutrophils Absolute Auto 4200 /uL (1500-7000); Neutrophils Percent Auto 55.5 % (50-75); Platelet Count 231 X10^3/uL (150-400); White Blood Cell Count 7.6 X10^3/uL (4.5-11.0)
[2023-12-31 09:32] LABS: Alanine Aminotransferase 18 IU/L (<35); Albumin 4.1 g/dL (3.5-5.0); Albumin Globulin Ratio 1.9 (1.0-2.8); Alkaline Phosphatase 56 U/L (38-126); Aspartate Aminotransferase 32 IU/L (14-36); BUN Creatinine Ratio 29.9 (6-22); Bilirubin Total 0.7 mg/dL (0.2-1.3); Blood Urea Nitrogen 23 mg/dL (7-17); Calcium 9.5 mg/dL (8.4-10.2); Carbon Dioxide 31 mmol/L (22-32); Chloride 103 mmol/L (98-107); Cholesterol 185 mg/dL (140-199); Estimated Glomerular Filt Rate > 60 mL/min (>60); Globulin 2.2 g/dL (1.7-4.1); Glucose 96 mg/dL (80-110); HDL Cholesterol 90 mg/dL (40-60); HEMOLYSIS < 15 (0-50); LDL Cholesterol Calculated 80 mg/dL (<100); Potassium 4.5 mmol/L (3.4-5.1); Sodium 137 mmol/L (137-145); Total Protein 6.3 g/dL (6.3-8.2); Triglycerides 76 mg/dL (35-150)
[2023-12-31 09:57] LABS: TSH w/ Reflex to FT4 1.23 uIU/mL (0.47-4.68)
[2024-01-01 08:36] LABS: Apolipoprotein B 77 mg/dL (<90)
== END ==
PROVIDERS: PCP Family Medicine; Referring Provider Family Medicine; Visit Provider Family Medicine
DX: M32.9 Systemic lupus erythematosus, unspecified (principal); E03.9 Hypothyroidism, unspecified; I10 Essential (primary) hypertension; M25.511 Pain in right shoulder; G89.29 Other chronic pain; B35.1 Tinea unguium
CPT/HCPCS: 36415; 80053; 80061; 82043; 82172; 82570; 84443; 85025

== ENCOUNTER → 2024-12-17 13:32 | Outpatient (CLI) | payer MEDICARE, SELFPAY ==
[2024-10-20 13:27] VITALS: BMI 24.0
[2024-12-17 14:31] LABS: Influenza A - CEPHEID Flu A NEGATIVE (NEGATIVE); Influenza B - CEPHEID Flu B NEGATIVE (NEGATIVE)
[2024-12-17 14:56] LABS: COVID-19 CEPHEID 4-PLEX PCR Negative (Negative)
== END ==
PROVIDERS: PCP Family Medicine; Visit Provider Family Medicine
DX: R05.1 Acute cough (principal)
CPT/HCPCS: 87637

== ENCOUNTER → 2024-12-17 13:47 | Outpatient (CLI) | payer MEDICARE, SELFPAY ==
[2024-10-20 13:27] VITALS: BMI 24.0
--- NOTE | 2024-12-17 13:52 | DI.RAD.S_ITS ---
PROCEDURE: XR CHEST 2V INDICATIONS: COUGH; SHORTNESS OF BREATH TECHNIQUE: 2 views of the chest were acquired. COMPARISON: Chest x-ray 01/25/2022 [facility] FINDINGS: New Moderate bibasilar consolidations commonly representing a combination of pleural effusions, atelectatic changes, pneumonia or other process. Moderately enlarged cardiopericardial silhouette increased. Increased moderately prominent mary, pulmonary vascular congestion and/or hilar lymph nodes. Increased moderate diffuse peribronchial thickening, prominent interstitial markings and alveolar opacities, bronchitis, pneumonia, viral infection, on a background of probable CHF. On the lateral image there is compression fracture with anterior wedging and exaggerated kyphosis mid thoracic spine age indeterminate. IMPRESSION: New bibasilar consolidations, enlarged cardiopericardial silhouette, prominent mary, peribronchial thickening and diffuse opacities as discussed above. CHF, pneumonia considered. Follow-up is needed. Midthoracic compression fracture age indeterminate likely has occurred in the interval since the prior exam. If symptoms persist or worsen, CT chest could be performed. Dictated by: Rj Currie M.D. on 12/17/2024 at 14:47 Approved by: Rj Currie M.D. on 12/17/2024 at 14:51
== END ==
LOC: RAD 13:48
PROVIDERS: PCP Family Medicine; Referring Provider Family Medicine; Visit Provider Family Medicine
DX: R05.9 Cough, unspecified (principal); R06.02 Shortness of breath; S22.000A Wedge compression fracture of unspecified thoracic vertebra, initial encounter for closed fracture; M40.294 Other kyphosis, thoracic region; R05.1 Acute cough
CPT/HCPCS: 71046; 87637

== ENCOUNTER → 2024-12-20 09:12 | Outpatient (CLI) | payer MEDICARE, SELFPAY ==
[2024-10-20 13:27] VITALS: BMI 24.0
[2024-12-20 10:11] LABS: Alanine Aminotransferase 52 IU/L (<35); Albumin 3.9 g/dL (3.5-5.0); Albumin Globulin Ratio 1.7 (1.0-2.8); Alkaline Phosphatase 55 U/L (38-126); Blood Urea Nitrogen 26 mg/dL (7-17); Calcium 9.3 mg/dL (8.4-10.2); Carbon Dioxide 26 mmol/L (22-32); Chloride 104 mmol/L (98-107); Estimated Glomerular Filt Rate > 60 mL/min (>60); Globulin 2.3 g/dL (1.7-4.1); Glucose 132 mg/dL (70-99); HEMOLYSIS < 15 (0-50); Potassium 4.3 mmol/L (3.4-5.1); Sodium 139 mmol/L (137-145); Total Protein 6.2 g/dL (6.3-8.2)
[2024-12-20 10:14] LABS: NT-proBNP (BNP-Adult 18+) 4220 pg/mL (<450)
== END ==
PROVIDERS: PCP Family Medicine; Referring Provider Family Medicine; Visit Provider Family Medicine
DX: R06.02 Shortness of breath (principal); I10 Essential (primary) hypertension; J90 Pleural effusion, not elsewhere classified; R60.9 Edema, unspecified
CPT/HCPCS: 36415; 80053; 83880

== ENCOUNTER → 2024-12-21 08:09 | Outpatient (CLI) | payer MEDICARE, SELFPAY ==
[2024-10-20 13:27] VITALS: BMI 24.0
--- NOTE | 2024-12-21 08:10 | DI.ECHO.S_ITS ---
[facility] : : [id number] : : [place] : : [id number] : : Phone: [phone] Echocardiogram Report + + :Name: PREMA LOPEZ Study Date: 12/21/2024 Height: 66 in : :[facility] ReadingLocation: Weight: 158 lb : : Gender: Female BSA: 1.8 m2 : :: 1945 Age: 79 yrs BP: 155/86 mmHg: :Reason For Study: PNEUMONIA : :Ordering Physician: ADDIE, : :CHUCK Performed By: Ramirez Zepeda : :Referring: CHUCK REAL : + + Interpretation Summary The left ventricle is normal in size. The ejection fraction is estimated to be 60-65%. There are no focal wall motion abnormalities. The interventricular septum is flattened, consistent with a right ventricular pressure/volume condition. The right ventricle is severely dilated. Right ventricular systolic function is mild to moderately reduced. The right ventricular systolic pressure is estimated to be at least 58 mmHg based on an estimated right atrial pressure of 15 mm Hg. The left atrium is severely dilated. The right atrium is severely dilated. There is mild to moderate tricuspid regurgitation. The aortic root is normal size. There is a small pericardial effusion noted. Procedure: A two-dimensional transthoracic echocardiogram with color flow and Doppler was performed. The study quality was technically good. There is no prior echocardiogram noted for this patient. The patient was in normal sinus rhythm during the exam. Left Ventricle: The left ventricle is normal in size. Left ventricular wall thickness is mildly increased. There is no ventricular septal defect visualized. The ejection fraction is estimated to be 60-65%. There are no focal wall motion abnormalities. The interventricular septum is flattened, consistent with a right ventricular pressure/volume condition. Diastolic function could not be accurately assessed due to unobtainable data. Right Ventricle: The right ventricle is severely dilated. Right ventricular systolic function is mild to moderately reduced. Atria: The left atrium is severely dilated. The right atrium is severely dilated. There is no Doppler evidence for an interatrial shunt. Mitral Valve: There is mild mitral annular calcification. The mitral valve leaflets appear mildly thickened. There is trace mitral regurgitation. Aortic Valve: The aortic valve is trileaflet. The aortic valve opens well. The aortic valve is mildly calcified. No aortic regurgitation is present. Tricuspid Valve: The tricuspid valve leaflets are thin and pliable. There is mild to moderate tricuspid regurgitation. The right ventricular systolic pressure is estimated to be at least 58 mmHg based on an estimated right atrial pressure of 15 mm Hg. Pulmonic Valve: The pulmonic valve is not well seen, but is grossly normal. There is trace pulmonic regurgitation. Great Vessels: The aortic root is normal size. The dimensions of the ascending aorta are normal. PA appears dilated. The IVC is dilated (diameter is greater than 2.1 cm) and it collapses less than 50% with a sniff. This suggests a high right atrial pressure of 15 mm Hg. Pericardium/ Pleura There is a small pericardial effusion noted. There is a small left-sided pleural effusion. MMode/2D Measurements & Calculations LVIDd: 4.1 cm LVOT diam: 2.1 cm LVIDs: 2.6 cm Ao root diam: 3.4 cm FS: 35.1 % asc Aorta Diam: 3.5 cm EPSS: 0.45 cm IVSd: 1.3 cm LVPWd: 0.92 cm LV seymour. diameter/BSA (cm/m^2): 2.2 LV sys. diameter/BSA (cm/m^2): 1.5 LA A2 area: 24.7 cm2 RA long axis: 6.0 cm LA A4 area: 28.2 cm2 RA area: 28.8 cm2 LA length (vol): 6.2 cm RA vol: 117.1 ml LA vol: 95.4 ml RA : 64.7 ml/m2 LA vol index: 52.7 ml/m2 IVC diam: 2.6 cm TAPSE: 1.4 cm Doppler Measurements & Calculations Ao V2 max: 126.9 cm/sec LVOT Max Terence: 95.9 cm/sec Ao V2 mean: 95.6 cm/sec LV V1 max P.7 mmHg Ao max P.4 mmHg LV V1 VTI: 15.7 cm Ao mean P.8 mmHg CARRIE(I,D): 2.3 cm2 Ao V2 VTI: 22.5 cm CARRIE(V,D): 2.5 cm2 sev ratio: 0.70 CARRIE indexed to BSA (cm^2/m^2): 1.3 MV E max terence: 108.3 cm/sec TR max terence: 326.3 cm/sec MV A max terence: 19.8 cm/sec TR max P.6 mmHg MV E/A: 5.5 PA V2 max: 128.1 cm/sec Med Peak E' Terence: 8.7 cm/sec PA V2 mean: 76.4 cm/sec E/E' med: 12.5 PA mean P.6 mmHg Lat Peak E' Terence: 8.5 cm/sec PA pr(Accel): 36.2 mmHg E/E' lat: 12.8 E/e' average: 12.7 MV dec time: 0.19 sec SV(LVOT): 52.9 ml Reading Physician:12:54 PM
== END ==
PROVIDERS: PCP Family Medicine; Referring Provider Family Medicine; Visit Provider Family Medicine
DX: I08.1 Rheumatic disorders of both mitral and tricuspid valves (principal); I31.39 Other pericardial effusion (noninflammatory); J90 Pleural effusion, not elsewhere classified; J18.9 Pneumonia, unspecified organism
CPT/HCPCS: 93306

== ENCOUNTER → 2024-12-30 07:09 | Outpatient (CLI) | payer MEDICARE, SELFPAY ==
[2024-10-20 13:27] VITALS: BMI 24.0
[2024-12-30 08:11] LABS: Add Manual Diff / Slide Review NO; Hematocrit 34.2 % (36-46); Hemoglobin 10.9 g/dL (12.0-16.0); Lymphocytes Absolute Auto 2800 /uL (1100-4500); Mean Corpuscular HGB Conc 32.0 % (30-36); Mean Corpuscular Hemoglobin 28.0 PG (26-34); Mean Corpuscular Volume 87.6 fL (80-100); Platelet Count 281 X10^3/uL (150-400)
[2024-12-30 08:43] LABS: Alanine Aminotransferase 34 IU/L (<35); Albumin 4.1 g/dL (3.5-5.0); Albumin Globulin Ratio 1.8 (1.0-2.8); Alkaline Phosphatase 55 U/L (38-126); Blood Urea Nitrogen 30 mg/dL (7-17); Calcium 9.2 mg/dL (8.4-10.2); Carbon Dioxide 28 mmol/L (22-32); Chloride 102 mmol/L (98-107); Cholesterol 148 mg/dL (140-199); Estimated Glomerular Filt Rate 59 mL/min (>60); Globulin 2.3 g/dL (1.7-4.1); Glucose 101 mg/dL (70-99); HDL Cholesterol 89 mg/dL (40-60); HEMOLYSIS < 15 (0-50); Potassium 3.9 mmol/L (3.4-5.1); Sodium 138 mmol/L (137-145); Total Protein 6.4 g/dL (6.3-8.2); Triglycerides 55 mg/dL (35-150)
[2024-12-30 08:47] LABS: NT-proBNP (BNP-Adult 18+) 3980 pg/mL (<450)
[2024-12-30 09:08] LABS: TSH w/ Reflex to FT4 2.06 uIU/mL (0.47-4.68)
[2024-12-30 10:19] LABS: Microalbumi Creatinin Ratio Ur 292.0 ug/mg CR (<30)
== END ==
PROVIDERS: PCP Family Medicine; Referring Provider Family Medicine; Visit Provider Family Medicine
DX: M32.9 Systemic lupus erythematosus, unspecified (principal); I50.810 Right heart failure, unspecified; E03.9 Hypothyroidism, unspecified; I10 Essential (primary) hypertension; M25.511 Pain in right shoulder; G89.29 Other chronic pain; R79.89 Other specified abnormal findings of blood chemistry; R06.2 Wheezing; I51.7 Cardiomegaly
CPT/HCPCS: 36415; 80053; 80061; 82043; 82570; 83880; 84443; 85025

== ENCOUNTER → 2025-01-05 08:40 | Outpatient (CLI) | payer MEDICARE, SELFPAY ==
[2024-10-20 13:27] VITALS: BMI 24.0
--- NOTE | 2025-01-05 08:41 | DI.CT.S_ITS ---
PROCEDURE: CT CHEST W CON
== END ==
PROVIDERS: PCP Family Medicine; Referring Provider Family Medicine; Visit Provider Family Medicine
DX: J90 Pleural effusion, not elsewhere classified (principal); I31.39 Other pericardial effusion (noninflammatory); M40.204 Unspecified kyphosis, thoracic region; K76.89 Other specified diseases of liver; R06.02 Shortness of breath; R05.3 Chronic cough; R06.2 Wheezing; M48.54XA Collapsed vertebra, not elsewhere classified, thoracic region, initial encounter for fracture; Z98.82 Breast implant status
CPT/HCPCS: 71260; Q9967

== ENCOUNTER → 2025-01-14 07:47 | Outpatient (CLI) | payer MEDICARE, SELFPAY ==
[2024-10-20 13:27] VITALS: BMI 24.0
--- NOTE | 2025-01-14 07:50 | DI.NM.S_ITS ---
PROCEDURE: NM LACEY PERF SPECT R&S PHARM Rest and pharmacological stress myocardial perfusion SPECT with gated imaging and ejection fraction RADIOPHARMACEUTICAL: 25 mCi Tc-99m tetrafosmin IV at rest and 26 mCi Tc-99m tetrafosmin IV at peak effect of pharmacological stress. [id number] was performed. INDICATIONS: right heart failure PQRS ATTESTATIONS: Measure 322 - Is this imaging test primarily performed on a low-risk surgery patient for preoperative evaluation within 30 days preceding their low-risk non-cardiac surgery? Low-risk surgery is defined as cardiac or myocardial infarction less than 1%, including (but not limited to) endoscopic procedures, superficial procedures, cataract surgery, and excisional breast surgery: Answer: No Measure 323 - Is this imaging test performed primarily for the monitoring of an asymptomatic patient who had percutaneous coronary intervention on the visit date or within 2 years of the visit date? Answer: No Measure 324 - Is this imaging test performed primarily for the initial detection and risk assessment on an asymptomatic, low coronary heart disease patient? Low CHD risk definition = clinicians should consider the maximum number of available patient factors used to estimate risk based on [place] (ATP III criteria), typically age, gender, diabetes, smoking status, and use of blood pressure medication, and integrate age appropriate estimates for missing elements, such as LDL or standard blood pressure. Answer: No TECHNIQUE: Radiopharmaceutical was injected at peak stress test, and also at rest. SPECT images were obtained. SPECT myocardial perfusion images were displayed in short axis, horizontal long axis, and vertical long axis views. Gated images were reviewed using PanoratioQUANT software. COMPARISON: None. CARDIAC STRESS: A pharmacologic stress test was performed under the supervision of an attending staff, using an infusion of 0.4 mg of Lexiscan. Hemodynamic data: There is normal blood pressure and heart rate response to pharmacologic stress. Symptoms: The patient denied anginal chest pain. Aminophylline: None EKG: No diagnostic changes of ischemia; rare PACs noted. FINDINGS: Raw data: There is good myocardial uptake of radiotracer. No significant motion artifacts. Vtla-xa-wpayf ratio is 0.29 (normal is less than 0.38 for tetrafosmin tracer). Left ventricle function: Gated images demonstrate normal left ventricular wall thickening. No segmental wall motion abnormalities. No transient ischemic dilation; TID is 1.19 (normal less than 1.3). Left ventricle resting end diastolic volume is 88 mL. Left ventricle stress ejection fraction is 81%; normal range is above 45%. Myocardial perfusion: There is normal distribution of activity in the right and left ventricular myocardium. No fixed or reversible perfusion defects. IMPRESSION: Negative Lexiscan myocardial perfusion scan for ischemia and infarction. Dictated by: Jakub Adam M.D. on 01/19/2025 at 16:23 Approved by: Jakub Adam M.D. on 01/19/2025 at 16:25
== END ==
LOC: NUCM 07:49
PROVIDERS: PCP Family Medicine; Referring Provider Family Medicine; Visit Provider Family Medicine
DX: I27.21 Secondary pulmonary arterial hypertension (principal); I50.810 Right heart failure, unspecified
CPT/HCPCS: 78452; 93017; A9502; J2785

== ENCOUNTER → 2025-01-26 15:23 | Outpatient (CLI) | payer MEDICARE, SELFPAY ==
[2024-10-20 13:27] VITALS: BMI 24.0
== END ==
LOC: RESP 15:25
PROVIDERS: PCP Family Medicine; Referring Provider Family Medicine; Visit Provider Family Medicine
DX: I27.21 Secondary pulmonary arterial hypertension (principal); R06.02 Shortness of breath; R94.2 Abnormal results of pulmonary function studies
CPT/HCPCS: 94060; 94618; 94726; 94729